=== PATIENT | female | born 1960 | race African-American/Black ===

== ENCOUNTER 2024-02-24 14:41 | Inpatient (IN) | payer MEDICAID ==
[~2024-02-24] VITALS: Ht 165.1 cm; Wt 84.8 kg
[2024-02-24] MEDS ORDERED: DEXTROSE 50%-WATER 50 ML DISP.SYRIN ONE (14:58)
[2024-02-24] MEDS: DEXTROSE 50%-WATER 50 ML DISP.SYRIN IV ONE ×2 (15:00→15:27)
[2024-02-24] MEDS: VANCOMYCIN 1 GM in IV D5W 250 ML IV ONE (15:00)
[2024-02-24] MEDS: PIPERACILLIN /TAZOBACTAM 3.375 G in IV D5W 50 ML IV ONE (15:00)
[2024-02-24] MEDS: IV NS 0.9% 1,000 ML BAG IV ONE ×2 (15:27→19:35)
[2024-02-24] MEDS ORDERED: FAMO20TA80 PO (15:36)
[2024-02-24] MEDS ORDERED: ASCO500T10 PO (15:36)
[2024-02-24] MEDS ORDERED: COLL30OI TP (15:36)
[2024-02-24] MEDS ORDERED: BENZ1LOZ58 PO (15:36)
[2024-02-24] MEDS ORDERED: GABA300C PO (15:36)
[2024-02-24] MEDS ORDERED: INSU100V39 SQ (15:36)
[2024-02-24] MEDS ORDERED: TYL2T PO (15:36)
[2024-02-24] MEDS ORDERED: HYDR-4075 PO (15:36)
[2024-02-24] MEDS ORDERED: ONDA-97 PO (15:36)
[2024-02-24] MEDS ORDERED: MULT-447 PO (15:36)
[2024-02-24] MEDS ORDERED: TRAM50TA2 PO (15:36)
[2024-02-24] MEDS ORDERED: LEVO25TA7 PO (15:36)
[2024-02-24] MEDS ORDERED: PROTEIN LIQUID PO (15:36)
[2024-02-24] MEDS ORDERED: ZINC1CAP2 PO (15:36)
[2024-02-24 17:16] LABS: BASOPHILS # (AUTO) 0.1 K/uL (0.0-0.2); BASOPHILS % (AUTO) 0.9 % (0.0-2.0); EOSINOPHILS # (AUTO) 0.3 K/uL (0.0-0.7); EOSINOPHILS % (AUTO) 2.7 % (0.0-6.0); HEMATOCRIT 28 % (33-45); HEMOGLOBIN 8.1 g/dL (11.5-14.8); LYMPHOCYTES # (AUTO) 1.3 K/uL (0.8-4.8); LYMPHOCYTES % (AUTO) 11.1 % (20.0-44.0); MEAN CORPUSCULAR HEMOGLOBIN 25 PG (26.0-33.0); MEAN CORPUSCULAR HGB CONC 29 g/dl (31.0-36.0); MEAN CORPUSCULAR VOLUME 88 fL (82-100); MONOCYTES # (AUTO) 0.3 K/uL (0.1-1.30); MONOCYTES % (AUTO) 2.7 % (2.0-12.0); NEUTROPHILS # (AUTO) 9.5 K/uL (1.8-8.9); NEUTROPHILS % (AUTO) 82.6 % (43.0-81.0); PLATELET COUNT (AUTO) 156 K/uL (150-450); RED BLOOD CELL COUNT(AUTO) 3.19 MIL/uL (4.0-5.2); RED CELL DISTRIBUTION WIDTH 25.8 % (11.5-15.0); WHITE BLOOD COUNT (AUTO) 11.5 K/uL (4.3-11.0)
[2024-02-24 17:46] LABS: CALCIUM, SERUM 7.7 mg/dL (8.5-10.1); CHLORIDE 105 mmol/L (98-107); CREATININE 4.4 mg/dL (0.6-1.3); GLUCOSE 164 mg/dL (74-106); POTASSIUM 5.4 mmol/L (3.5-5.1); SODIUM SERUM 140 mmol/L (136-145)
[2024-02-24 17:59] LABS: APPEARANCE,URINE CLOUDY (CLEAR); COLOR,URINE BROWN (YELLOW)
[2024-02-24 18:00] LABS: ALBUMIN 1.6 g/dL (3.4-5.0); BILIRUBIN,TOTAL 9.8 mg/dL (0.2-1.0); TOTAL PROTEIN, SERUM 5.1 g/dL (6.4-8.2)
[2024-02-24 18:02] LABS: CARBON DIOXIDE 6 mmol/L (21-32); UREA NITROGEN, BLOOD 102 mg/dL (7-18)
[2024-02-24 18:26] LABS: LACTIC ACID 10.8 mmol/L (0.4-2.0)
[2024-02-24 19:01] LABS: ALKALINE PHOSPHATASE 1001 U/L (46-116); ASPARTATE AMINOTRANSFERASE 3589 U/L (15-37)
[2024-02-24 19:02] LABS: ALANINE AMINOTRANSFERASE 117 U/L (12-78)
[2024-02-24 19:47] LABS: BACTERIA,URINE None seen /HPF (None Seen); SQUAMOUS EPITHELIAL CELL,UR None Seen /HPF (None Seen); URINE AMORPHOUS PHOSPHATES Moderate /HPF (None Seen); WBC,URINE 0-2 /HPF (0-3)
[2024-02-24] MEDS ORDERED: NOREPINEPHRINE 8MG/250ML RTU 250 ML IV ONE (20:11)
[2024-02-24] MEDS: NOREPINEPHRINE 8 MG in IV D5W 242 ML IV PRN (20:20)
[2024-02-24] MEDS: NOREPINEPHRINE 8 MG in IV D5W 242 ML IV STA (20:34)
[2024-02-24 20:52] LABS: PARTIAL THROMBOPLASTIN TIME 72.6 SEC (24.3-34.3); PROTHROMBIN TIME 39.4 SECS (9.2-11.1)
[2024-02-24 21:02] LABS: INR 4.07 (0.91-1.10)
[2024-02-24] MEDS ORDERED: ONDANSETRON HCL/PF 4 MG/2 ML VIAL IVP PRN (21:30)
[2024-02-24] MEDS ORDERED: ACETAMINOPHEN 325 MG TABLET PO PRN (21:30)
[2024-02-24] MEDS: IV NS 0.9% 1,000 ML IV PRN (22:45)
[2024-02-24 23:00] VITALS: BP 112/63; O2SAT 97
[2024-02-24] MEDS: HEPARIN SODIUM, PORCINE 5000 UNITS/1 ML VIAL SQ SCH (23:09)
[2024-02-25] VITALS (103 sets, daily range): BP systolic 57–175; BP diastolic 21–89; TEMP 92–98.6; O2SAT 89–100
[2024-02-25 00:56] LABS: ANISOCYTOSIS 1+; BASOPHILS % (MANUAL) 0 % (0.0-2.0); EOSINOPHILS % (MANUAL) 1 % (0-4); LYMPHOCYTES % (MANUAL) 11 % (16-48); MONOCYTES % (MANUAL) 3 % (0-11.0); NEUTROPHILS % (MANUAL) 85 (42-76); PLATELET ESTIMATE ADEQUATE; TARGET CELLS 1+
[2024-02-25] MEDS ORDERED: DEXTROSE 50%-WATER 50 ML DISP.SYRIN ONE (05:52)
[2024-02-25] MEDS ORDERED: DEXTROSE 50%-WATER 50 ML DISP.SYRIN IVP PRN (06:00)
[2024-02-25] MEDS ORDERED: Sodium Chloride 154 MEQ in IV 10% DEXTROSE 1,000 ML IV SCH (06:00)
[2024-02-25] MEDS ORDERED: SODIUM BICARBONATE SYR 50 MEQ/50 ML DISP.SYRIN ONE (06:08)
[2024-02-25] MEDS: SODIUM BICARBONATE SYR 50 MEQ/50 ML DISP.SYRIN IV ONE ×3 (06:19→14:43)
[2024-02-25] MEDS: IV 10% DEXTROSE 1,000 ML IV SCH (06:48)
[2024-02-25] MEDS: PHENYLEPHRINE 50 MG in IV NS 0.9% 245 ML IV PRN (07:06)
[2024-02-25] MEDS: Sodium Bicarbonate 100 MEQ in IV D5/ 0.9% NACL 1,000 ML IV SCH (07:10)
[2024-02-25] MEDS: LEVOTHYROXINE SODIUM 25 MCG TABLET PO SCH (07:30)
[2024-02-25 08:41] LABS: ABG BASE EXCESS -27.7 mmol/L (-2.0-3.0); ABG OXYGEN SATURATION 99.4 % (94.0-98.0); ABG PCO2 16.3 mmHg (32.0-45.0); ABG PH 6.913 (7.350-7.450); ABG PO2 289.8 mmHg (83.0-108.0); ABG TOTAL HEMOGLOBIN 9.6 G/dL (12.0-16.0); COHb 0.3 % (0.5-1.5); MetHb 0.6 % (0.0-1.5); O2Hb 98.5 % (94.0-97.0); SITE, ABG RIGHT RADIAL; VT, ABG 500 mL
[2024-02-25] MEDS: MULTIVIT W/MINERALS 1 TAB TABLET PO SCH (09:00)
[2024-02-25] MEDS: ASCORBIC ACID 500 MG TABLET PO SCH (09:00)
[2024-02-25] MEDS ORDERED: PIPERACILLIN /TAZOBACTAM 3.375 G in IV D5W 50 ML IV SCH (09:00)
[2024-02-25] MEDS: ZINC SULFATE 220 MG CAPSULE PO SCH (09:00)
[2024-02-25] MEDS: FAMOTIDINE (20 MG) 20 MG TABLET PO SCH (09:00)
[2024-02-25] MEDS: PROSOURCE / PROSTAT (PYXIS) 30 ML UDC GT SCH (09:00)
[2024-02-25] MEDS: GABAPENTIN 300 MG CAPSULE PO SCH (09:00)
[2024-02-25] MEDS ORDERED: COLLAGENASE 30 GM TUBE TP SCH (09:00)
[2024-02-25] MEDS ORDERED: SUCCINYLCHOLINE CHLORIDE 20 MG/ML VIAL IV ONE (09:11)
[2024-02-25] MEDS ORDERED: EPINEPHRINE (1:10,000) SYRINGE 1 MG/10 ML DISP.SYRIN IVP ONE (09:13)
[2024-02-25] MEDS: PIPERACILLIN /TAZOBACTAM 2.25 G in IV D5W 50 ML IV SCH (09:19)
[2024-02-25 09:25] LABS: BASOPHILS # (AUTO) 0.2 K/uL (0.0-0.2); BASOPHILS % (AUTO) 0.8 % (0.0-2.0); EOSINOPHILS # (AUTO) 0.6 K/uL (0.0-0.7); HEMATOCRIT 31 % (33-45); HEMOGLOBIN 8.7 g/dL (11.5-14.8); LYMPHOCYTES # (AUTO) 3.4 K/uL (0.8-4.8); LYMPHOCYTES % (AUTO) 16.9 % (20.0-44.0); MEAN CORPUSCULAR HEMOGLOBIN 25 PG (26.0-33.0); MEAN CORPUSCULAR HGB CONC 28 g/dl (31.0-36.0); MEAN CORPUSCULAR VOLUME 90 fL (82-100); MONOCYTES # (AUTO) 0.7 K/uL (0.1-1.30); MONOCYTES % (AUTO) 3.4 % (2.0-12.0); NEUTROPHILS # (AUTO) 15.3 K/uL (1.8-8.9); NEUTROPHILS % (AUTO) 75.9 % (43.0-81.0); PLATELET COUNT (AUTO) 183 K/uL (150-450); RED BLOOD CELL COUNT(AUTO) 3.48 MIL/uL (4.0-5.2); RED CELL DISTRIBUTION WIDTH 26.1 % (11.5-15.0); WHITE BLOOD COUNT (AUTO) 20.2 K/uL (4.3-11.0)
[2024-02-25 09:45] LABS: CALCIUM, SERUM 7.9 mg/dL (8.5-10.1); CREATININE 4.8 mg/dL (0.6-1.3); MAGNESIUM 2.6 mg/dL (1.8-2.4); POTASSIUM 5.9 mmol/L (3.5-5.1)
[2024-02-25] MEDS: PROPOFOL 100 ML IV PRN (10:38)
[2024-02-25] MEDS: HYDROCORTISONE SOD SUCCINATE 100 MG/2 ML VIAL IV SCH (11:34)
[2024-02-25 11:57] LABS: PHOSPHORUS 11.9 mg/dL (2.5-4.9)
[2024-02-25] MEDS: PANTOPRAZOLE 40 MG VIAL IV SCH (13:37)
[2024-02-25 13:48] LABS: INR 3.89 (0.91-1.10); PROTHROMBIN TIME 37.7 SECS (9.2-11.1)
[2024-02-25 13:52] LABS: ABG BASE EXCESS -28.2 mmol/L (-2.0-3.0); ABG PCO2 15.9 mmHg (32.0-45.0); ABG PH 6.892 (7.350-7.450); ABG PO2 157.1 mmHg (83.0-108.0); ABG TOTAL HEMOGLOBIN 9.1 G/dL (12.0-16.0); COHb 0.3 % (0.5-1.5); MetHb 0.4 % (0.0-1.5); O2Hb 97.3 % (94.0-97.0); PEEP,BG 0 cm H2O; SITE, ABG RIGHT RADIAL; VT, ABG 500 mL
[2024-02-25 14:01] LABS: D-DIMER 34.9 mg/L(FEU (0.17-0.50)
[2024-02-25 14:02] LABS: PARTIAL THROMBOPLASTIN TIME 82.1 SEC (24.3-34.3)
[2024-02-25] MEDS: NOREPINEPHRINE 32 MG in IV NS 0.9% 218 ML IV PRN (14:05)
[2024-02-25 16:33] LABS: ANISOCYTOSIS 2+; EOSINOPHILS % (MANUAL) 1 % (0-4); HYPOCHROMASIA 1+; LYMPHOCYTES % (MANUAL) 18 % (16-48); MONOCYTES % (MANUAL) 4 % (0-11.0); NEUTROPHILS % (MANUAL) 77 (42-76); PLATELET ESTIMATE ADEQUATE
[2024-02-25] MEDS: BLOOD SUGAR DIAGNOSTIC 1 EACH STRIP IN SCH (18:43)
[2024-02-25 18:46] LABS: BASOPHILS # (AUTO) 0.1 K/uL (0.0-0.2); BASOPHILS % (AUTO) 0.4 % (0.0-2.0); EOSINOPHILS # (AUTO) 0.8 K/uL (0.0-0.7); EOSINOPHILS % (AUTO) 3.7 % (0.0-6.0); HEMATOCRIT 29 % (33-45); HEMOGLOBIN 8.1 g/dL (11.5-14.8); LYMPHOCYTES # (AUTO) 3.8 K/uL (0.8-4.8); LYMPHOCYTES % (AUTO) 16.6 % (20.0-44.0); MEAN CORPUSCULAR HEMOGLOBIN 25 PG (26.0-33.0); MEAN CORPUSCULAR HGB CONC 28 g/dl (31.0-36.0); MEAN CORPUSCULAR VOLUME 90 fL (82-100); MONOCYTES # (AUTO) 0.9 K/uL (0.1-1.30); MONOCYTES % (AUTO) 3.8 % (2.0-12.0); NEUTROPHILS # (AUTO) 17.1 K/uL (1.8-8.9); NEUTROPHILS % (AUTO) 75.5 % (43.0-81.0); PLATELET COUNT (AUTO) 149 K/uL (150-450); RED BLOOD CELL COUNT(AUTO) 3.25 MIL/uL (4.0-5.2); RED CELL DISTRIBUTION WIDTH 25.9 % (11.5-15.0); WHITE BLOOD COUNT (AUTO) 22.7 K/uL (4.3-11.0)
[2024-02-25] MEDS ORDERED: ACETAMINOPHEN 325 MG TABLET PO ONE (19:00)
[2024-02-25 19:11] LABS: ALANINE AMINOTRANSFERASE 355 U/L (12-78); BILIRUBIN,TOTAL 8.9 mg/dL (0.2-1.0); CALCIUM, SERUM 7.4 mg/dL (8.5-10.1); CHLORIDE 108 mmol/L (98-107); CREATININE 4.7 mg/dL (0.6-1.3); GLUCOSE 159 mg/dL (74-106); MAGNESIUM 2.5 mg/dL (1.8-2.4); SODIUM SERUM 148 mmol/L (136-145); TOTAL PROTEIN, SERUM 4.8 g/dL (6.4-8.2)
[2024-02-25] MEDS: PHYTONADIONE INJ 10 MG/1 ML AMPUL SQ ONE (19:30)
[2024-02-25 19:31] LABS: ALKALINE PHOSPHATASE 1045 U/L (46-116)
[2024-02-25 19:32] LABS: ASPARTATE AMINOTRANSFERASE > 1000 U/L (15-37)
[2024-02-25 19:35] LABS: CARBON DIOXIDE 3 mmol/L (21-32); POTASSIUM 6.5 mmol/L (3.5-5.1)
[2024-02-25 19:37] LABS: ALBUMIN 1.4 g/dL (3.4-5.0); PHOSPHORUS 12.3 mg/dL (2.5-4.9); UREA NITROGEN, BLOOD 95 mg/dL (7-18)
[2024-02-25] MEDS: Calcium Gluconate 0.465 MEQ/ML VIAL IV ONE (20:54)
[2024-02-25] MEDS: INSULIN REGULAR, HUMAN 100 UNIT/ML 10 ML VIAL IV ONE (20:55)
[2024-02-25] MEDS: DEXTROSE 50%-WATER 50 ML DISP.SYRIN IVP ONE (20:57)
[2024-02-25 21:27] LABS: THYROID STIMULATING HORMONE 4.68 uIU/mL (0.358-3.74)
[2024-02-25 21:29] LABS: CALCIUM, SERUM 7.6 mg/dL (8.5-10.1); CREATININE 4.7 mg/dL (0.6-1.3)
[2024-02-25 21:53] LABS: POTASSIUM 6.8 mmol/L (3.5-5.1)
[2024-02-26] VITALS (62 sets, daily range): BP systolic 0–217; BP diastolic 0–78; TEMP 97.6–98.2; O2SAT 0–100
[2024-02-26] MEDS: IV 10% DEXTROSE 1,000 ML IV PRN (02:50)
[2024-02-26 03:10] LABS: ABG BASE EXCESS -28.6 mmol/L (-2.0-3.0); ABG OXYGEN SATURATION 84.8 % (94.0-98.0); ABG PCO2 18.1 mmHg (32.0-45.0); ABG PH 6.851 (7.350-7.450); ABG PO2 77.3 mmHg (83.0-108.0); ABG TOTAL HEMOGLOBIN 7.9 G/dL (12.0-16.0); COHb 0.1 % (0.5-1.5); MetHb 0.7 % (0.0-1.5); O2Hb 84.1 % (94.0-97.0); SITE, ABG RIGHT BRACHIAL
[2024-02-26] MEDS ORDERED: ALBUMIN 5% 12.5 GM/250 ML BOTTLE IV ONE ×2 (03:30→04:00)
[2024-02-26] MEDS: ALBUMIN 25% 25 GM in PREMIX 1 EA IV PRN (04:00)
[2024-02-26] MEDS: ALBUMIN 25% 100 ML IV ONE (04:13)
[2024-02-26 04:28] LABS: CALCIUM, SERUM 7.5 mg/dL (8.5-10.1); CHLORIDE 105 mmol/L (98-107); CREATININE 3.8 mg/dL (0.6-1.3); GLUCOSE 195 mg/dL (74-106); SODIUM SERUM 148 mmol/L (136-145); UREA NITROGEN, BLOOD 76 mg/dL (7-18)
[2024-02-26 04:32] LABS: CARBON DIOXIDE 5 mmol/L (21-32); POTASSIUM 6.6 mmol/L (3.5-5.1)
[2024-02-26 05:16] LABS: ABG OXYGEN SATURATION 98.7 % (94.0-98.0); ABG PCO2 14.2 mmHg (32.0-45.0); ABG PH 6.902 (7.350-7.450); ABG PO2 203.5 mmHg (83.0-108.0); ABG TOTAL HEMOGLOBIN 7.6 G/dL (12.0-16.0); COHb 0.4 % (0.5-1.5); MetHb 0.5 % (0.0-1.5); O2Hb 97.8 % (94.0-97.0); SITE, ABG RIGHT BRACHIAL; VT, ABG 500 mL
[2024-02-26] MEDS ORDERED: diphenhydrAMINE HCL 50 MG/ML VIAL ONE (05:24)
[2024-02-26] MEDS: ACETAMINOPHEN 650 MG/SUPP.RECT RC ONE (05:26)
[2024-02-26] MEDS: diphenhydrAMINE HCL 50 MG/ML VIAL IV ONE (05:26)
[2024-02-26] MEDS ORDERED: ALBUMIN 25% 25 GM in PREMIX 1 EA IV PRN (08:00)
[2024-02-26 08:23] LABS: BASOPHILS # (AUTO) 0.1 K/uL (0.0-0.2); BASOPHILS % (AUTO) 0.4 % (0.0-2.0); EOSINOPHILS # (AUTO) 0.3 K/uL (0.0-0.7); EOSINOPHILS % (AUTO) 1.4 % (0.0-6.0); HEMATOCRIT 26 % (33-45); HEMOGLOBIN 7.8 g/dL (11.5-14.8); LYMPHOCYTES # (AUTO) 7.3 K/uL (0.8-4.8); LYMPHOCYTES % (AUTO) 30.3 % (20.0-44.0); MEAN CORPUSCULAR HEMOGLOBIN 27 PG (26.0-33.0); MEAN CORPUSCULAR HGB CONC 30 g/dl (31.0-36.0); MEAN CORPUSCULAR VOLUME 91 fL (82-100); MONOCYTES # (AUTO) 1.1 K/uL (0.1-1.30); MONOCYTES % (AUTO) 4.5 % (2.0-12.0); NEUTROPHILS # (AUTO) 15.2 K/uL (1.8-8.9); NEUTROPHILS % (AUTO) 63.4 % (43.0-81.0); PLATELET COUNT (AUTO) 96 K/uL (150-450); RED BLOOD CELL COUNT(AUTO) 2.88 MIL/uL (4.0-5.2); RED CELL DISTRIBUTION WIDTH 26.2 % (11.5-15.0)
[2024-02-26] MEDS: SODIUM BICARBONATE SYR 50 MEQ/50 ML DISP.SYRIN IV ONE (08:25)
[2024-02-26] MEDS: THERAHONEY GEL 1.5 OZ TUBE TP SCH (09:00)
[2024-02-26] MEDS: PHENYLEPHRINE 100 MG in IV NS 0.9% 240 ML IV PRN (09:50)
[2024-02-26 10:23] LABS: ANISOCYTOSIS 2+; EOSINOPHILS % (MANUAL) 1 % (0-4); LYMPHOCYTES % (MANUAL) 32 % (16-48); MONOCYTES % (MANUAL) 2 % (0-11.0); PLATELET ESTIMATE DECREASED
[2024-02-26 10:24] LABS: TARGET CELLS 1+
[2024-02-26 10:26] LABS: BAND % (MANUAL) 1 % (0.0-5.0)
[2024-02-26 10:27] LABS: MYELOCYTES % 2 % (0-0); NEUTROPHILS % (MANUAL) 62 (42-76)
[2024-02-26] MEDS: VASOPRESSIN INJ 40 UNIT in IV NS 0.9% 38 ML IV PRN (10:55)
[2024-02-26 12:00] LABS: PROTHROMBIN TIME > 100.0 SECS (9.2-11.1)
[2024-02-26 12:01] LABS: INR > 10.00 (0.91-1.10)
[2024-02-26 12:02] LABS: PARTIAL THROMBOPLASTIN TIME > 170.0 SEC (24.3-34.3)
[2024-02-26 12:03] LABS: D-DIMER 27.43 mg/L(FEU (0.17-0.50)
[2024-02-26] MEDS ORDERED: EPINEPHRINE (1:10,000) SYRINGE 1 MG/10 ML DISP.SYRIN IVP ONE (12:06)
[2024-02-26 12:19] LABS: FIBRINOGEN ACTIVITY 0 Mg/dL (213-485)
[2024-02-27 04:06] LABS: HEPATITIS B SURFACE AB Non Reactive (.)
[2024-02-27 08:08] LABS: FREE KAPPA LT CHAINS SERUM 122.7 mg/L (3.3-19.4); FREE LAMBDA LT CHAIN SERUM 129.8 mg/L (5.7-26.3); IMMUNOGLOBULIN A, SERUM 354 mg/dL (87-352); IMMUNOGLOBULIN G, SERUM 1230 mg/dL (586-1602); IMMUNOGLOBULIN M, SERUM 128 mg/dL (26-217); KAPPA/LAMBDA RATIO SERUM 0.95 (0.26-1.65)
[2024-02-27 13:10] LABS: FOLIC ACID 9.3 ng/mL (>3.0)
[2024-02-28 06:06] LABS: *SPE A/G RATIO 0.7 (0.7-1.7); *SPE ALBUMIN 1.8 g/dL (2.9-4.4); *SPE ALPHA-1-GLOBULIN 0.3 g/dL (0.0-0.4); *SPE ALPHA-2-GLOBULIN 0.7 g/dL (0.4-1.0); *SPE BETA GLOBULIN 0.6 g/dL (0.7-1.3); *SPE GLOBULIN, TOTAL 2.6 g/dL (2.2-3.9); *SPE M-SPIKE Not Observed g/dL (Not Observed); *SPE PROTEIN TOTAL 4.4 g/dL (6.0-8.5)
== END 2024-02-26 17:27 | DRG 720 ==
LOC: ER 14:45 → TELE 16:24 → ICU 21:50
PROVIDERS: ADMIT Nurse Practitioner Acute Care; ATTEND Internal Medicine
PROC: 5A1945Z Respiratory Ventilation, 24-96 Consecutive Hours (ICD-10-PCS; principal; 2024-02-25)
PROC: 0BH18EZ Insertion of Endotracheal Airway into Trachea, Via Natural or Artificial Opening Endoscopic (ICD-10-PCS; 2024-02-25)
PROC: 02HV33Z Insertion of Infusion Device into Superior Vena Cava, Percutaneous Approach (ICD-10-PCS; 2024-02-25)
PROC: B548ZZA Ultrasonography of Superior Vena Cava, Guidance (ICD-10-PCS; 2024-02-25)
PROC: 30233K1 Transfusion of Nonautologous Frozen Plasma into Peripheral Vein, Percutaneous Approach (ICD-10-PCS; 2024-02-26)
PROC: 5A12012 Performance of Cardiac Output, Single, Manual (ICD-10-PCS; 2024-02-26)
PROC: 5A12012 Performance of Cardiac Output, Single, Manual (ICD-10-PCS; 2024-02-26)
PROC: 05HM33Z Insertion of Infusion Device into Right Internal Jugular Vein, Percutaneous Approach (ICD-10-PCS; 2024-02-26)
PROC: B543ZZA Ultrasonography of Right Jugular Veins, Guidance (ICD-10-PCS; 2024-02-26)
PROC: 5A1D70Z Performance of Urinary Filtration, Intermittent, Less than 6 Hours Per Day (ICD-10-PCS; 2024-02-26)
DX: A41.9 Sepsis, unspecified organism (principal); N17.0 Acute kidney failure with tubular necrosis; D65 Disseminated intravascular coagulation [defibrination syndrome]; J96.00 Acute respiratory failure, unspecified whether with hypoxia or hypercapnia; R65.21 Severe sepsis with septic shock; J15.69 Pneumonia due to other Gram-negative bacteria; G92.8 Other toxic encephalopathy; C16.9 Malignant neoplasm of stomach, unspecified; C79.51 Secondary malignant neoplasm of bone; K83.1 Obstruction of bile duct; J15.9 Unspecified bacterial pneumonia; D68.69 Other thrombophilia; E87.20 Acidosis, unspecified; D64.9 Anemia, unspecified; E03.9 Hypothyroidism, unspecified; E11.40 Type 2 diabetes mellitus with diabetic neuropathy, unspecified; E11.22 Type 2 diabetes mellitus with diabetic chronic kidney disease; E66.01 Morbid (severe) obesity due to excess calories; E87.5 Hyperkalemia; N18.9 Chronic kidney disease, unspecified; Z20.822 Contact with and (suspected) exposure to COVID-19; E86.0 Dehydration; J32.0 Chronic maxillary sinusitis; J32.3 Chronic sphenoidal sinusitis; K73.9 Chronic hepatitis, unspecified; R74.01 Elevation of levels of liver transaminase levels; D68.8 Other specified coagulation defects; K92.2 Gastrointestinal hemorrhage, unspecified; M62.82 Rhabdomyolysis; C78.7 Secondary malignant neoplasm of liver and intrahepatic bile duct; K72.90 Hepatic failure, unspecified without coma; K68.2 Retroperitoneal fibrosis; Z79.899 Other long term (current) drug therapy; I12.9 Hypertensive chronic kidney disease with stage 1 through stage 4 chronic kidney disease, or unspecified chronic kidney disease; E11.649 Type 2 diabetes mellitus with hypoglycemia without coma; Z79.4 Long term (current) use of insulin
CPT/HCPCS: 36415; 36600; 70450-TC; 71045-TC; 80048-TC; 80053-TC; 80076-TC; 81001; 82140-TC; 82378; 82533; 82607-TC; 82728-TC; 82784; 82803-TC; 82962-TC; 83540-TC; 83605-TC; 83735-TC; 84100-TC; 84155; 84165; 84443-TC; 84484-TC; 85025-TC; 85396; 85730-TC; 86334; 86706; 86850-TC; 87040-TC; 87081-TC; 87086-TC; 87340; 90935-TC; 92950-TC; 94002-TC; 94003-TC; 94799-TC; A4216; A4223; G0378; J0171; J0330; J0612; J1200; J1644; J1720; J1815; J2470; J2543; J2704; J3370; J3430; J3490; J7042; J7050; J7060; P9017; P9047